=== PATIENT | male | born 1970 | race Caucasian/White ===

== ENCOUNTER 2022-10-30 09:05 | Day surgery (SDC) | payer SELFPAY ==
--- NOTE | 2022-10-29 10:23 | P.HPOR ---
History of Present Illness H&P Date: 10/29/22 Chief Complaint: Left knee pain The patient is a 52-year-old male who presents with left knee pain for the past month after a recent injury. He notes he stepped wrong and felt a snap in his knee. He's had swelling, pain along with locking and giving way ever since. He denies previous problems. He's been limping and notes he's quite debilitated because of this. Review of Systems As per HPI Past Medical History Past Medical History: Hypertension History of Any Multi-Drug Resistant Organisms: None Reported Additional Past Surgical History / Comment(s): RIGHT KNEE ARTHROSCOPY/ACL reconstruction Past Anesthesia/Blood Transfusion Reactions: No Reported Reaction Past Psychological History: No Psychological Hx Reported Smoking Status: Current every day smoker Past Alcohol Use History: None Reported Additional Past Alcohol Use History / Comment(s): STARTED SMOKING 2 YEARS, .5PPD. Past Drug Use History: None Reported - Past Family History Mother Family Medical History: No Reported History Medications and Allergies Home Medications Medication Instructions Recorded Confirmed Type Felodipine [Felodipine ER] 5 mg PO BID 10/26/22 10/26/22 History Valsartan/Hydrochlorothiazide 1 tab PO BID 10/26/22 10/26/22 History [Valsartan-Hctz 160-25 mg Tab] atenoloL 25 mg PO PC-LUNCH 10/26/22 10/26/22 History Allergies Allergy/AdvReac Type Severity Reaction Status Date / Time No Known Allergies Allergy Verified 10/26/22 11:47 Physical Examination - Knee left Appearance: effusion Effusion grade: grade 1 Tenderness with palpation: medial Pain: with flexion Gait: limping ROM: extension: -5 degrees ROM: flexion: 120 degrees Meniscal tests: medial meniscal tests: positive, medial joint line pain: positive Results The patient is a well-developed well-nourished male proximal 5 foot 11, 231 pounds of endomorphic habitus. HEENT exam is nonfocal, neck is supple. He is painless passive motion of the left hip. Straight leg raise negative. His distal neurovascular appears intact in the left lower extremity. - Diagnostic results Knee MRI: image reviewed (Left knee MRI shows evidence of a posterior medial meniscal tear.) Assessment and Plan Assessment: Left knee internal derangement/symptomatic medial meniscal tear Plan: I talked with the patient length regarding his condition and treatment options. At this point he is quite limited having pain and mechanical symptoms after this acute injury. After thorough discussion he proceed with surgery. We will plan to proceed with left knee arthroscopy with probable partial medial meniscectomy. We'll perform that as an outpatient procedure. Risks and benefits were discussed at length in layman's terms.
[~2022-10-30 09:05] MED LIST: DEXAMETHASONE SOD PHOSPHATE 4 MG/ML 1 ML VIAL IV ONE; LACTATED RINGERS 1,000 ML IV SCH; LIDOCAINE 1% (10MG/ML) FOR IV START INTRADERMA PRN; MIDAZOLAM 2 MG/2 ML VIAL IV PRN; ONDANSETRON 4 MG/2 ML VIAL IVP ONE
[2022-10-30 13:02] VITALS: RESP 16; TEMP 98.2
[2022-10-30] MEDS ORDERED: fentaNYL (PF) 50 MCG/ML 2 ML AMP ONE (14:11)
[2022-10-30] MEDS ORDERED: MIDAZOLAM 2 MG/2 ML VIAL ONE (14:11)
[2022-10-30] MEDS ORDERED: GLYCOPYRROLATE 0.2 MG/ML 2 ML VIAL ONE (14:11)
[2022-10-30] MEDS ORDERED: PROPOFOL 10 MG/ML 20 ML VIAL IV ONE (14:11)
[2022-10-30] MEDS ORDERED: LIDOCAINE 2% INJ 20 MG/ML (2 ML VIAL) ONE (14:11)
[2022-10-30] MEDS ORDERED: LACTATED RINGERS 1,000 ML IV ONE (14:38)
--- NOTE | 2022-10-30 15:02 | P.OP ---
Date of Procedure: 10/30/22 Preoperative Diagnosis: Left knee internal derangement Postoperative Diagnosis: Left knee posterior medial meniscal tear Procedure(s) Performed: Left knee arthroscopic partial medial meniscectomy Anesthesia: MEGHANA Surgeon: Niles Kumari Estimated Blood Loss (ml): 10 Pathology: none sent Condition: stable Disposition: PACU Indications for Procedure: The patient's 52-year-old male presents with progressive left knee pain and mechanical symptoms after a recent acute injury. A discussion of the risks and benefits of operative intervention versus conservative measures was made with the patient. He opted to proceed with surgery. Operative risks to include infection, neurovascular injury, development of blood clots, possible incomplete resolution of symptoms, possible worsening symptoms and need for subsequent procedures was discussed. Informed consent was obtained. Operative Findings: As below Description of Procedure: The patient was brought to the operating room, and after induction of general anesthesia examined the left knee. Collaterals were stable, Josr was negative, and posterior drawer was negative. The left lower extremity was prepped and draped in a normal fashion. A superior lateral portal was made through a 3 mm skin incision superior and lateral to the patella. This was used for outflow. A lateral portal was made through a 5 mm vertical skin incision lateral to the patella tendon above the joint line. Diagnostic arthroscopy was performed. On inspection of the medial compartment, and oblique tear involving the posterior most aspect of the medial meniscus was noted in the white-red junction. This was debrided back to stable base with straight baskets and a motorized shaver. The remaining medial meniscus was stable and intact. On inspection of the notch, the anterior cruciate ligament appeared to be intact. On inspection of the lateral compartment, no significant cartilage or meniscal pathology was noted. On inspection of the patellofemoral articulation, there was mild chondral fibrillation however no loose chondral fragments. The gutters were clear debris. The knee was then thoroughly irrigated. The portals were closed with Steri-Strips. A sterile dressing was applied in addition to a compression stocking. The patient was awoken from general anesthesia and transferred to recovery room in good condition. Blood loss was estimated at 10 mL. No complications were incurred.
[2022-10-30] MEDS: HYDROmorphone 0.5 MG/0.5 ML SYRINGE IVP PRN ×3 (15:04→15:26)
[2022-10-30] MEDS ORDERED: HYDROcodone/APAP 5-325MG 1 EACH TAB ONE (16:04)
[2022-10-30 17:02] VITALS: BP 133/84; PULSE 76
== END 2022-10-30 17:07 | disposition home or self-care (01) ==
LOC: OR 09:05
PROVIDERS: ATTEND Orthopaedic Surgery
DX: S83.242A Other tear of medial meniscus, current injury, left knee, initial encounter (principal); M25.462 Effusion, left knee; I10 Essential (primary) hypertension; F17.210 Nicotine dependence, cigarettes, uncomplicated; Z98.890 Other specified postprocedural states; Z79.84 Long term (current) use of oral hypoglycemic drugs; X58.XXXA Exposure to other specified factors, initial encounter; Z79.810 Long term (current) use of selective estrogen receptor modulators (SERMs); Z79.899 Other long term (current) drug therapy
CPT/HCPCS: 29881; J2250; J1100; J0690; J2405; J3010; J2704; J1170; J2001